=== PATIENT | female | born 1970 | race Caucasian/White ===

== ENCOUNTER 2016-12-26 08:50 | Emergency (ER) | payer OTHER ==
[2016-12-26 09:08] VITALS: BP 128/81
--- NOTE | 2016-12-26 09:12 | UC ---
Throat Pain/Nasal Anthony HPI - HPI Summary HPI Summary: Fabiano sinus and ear pressure for about three weeks. No fever. She has been trying OTC decongestants and flonase. Now she has redness and irritation of the left eye. No trauma or contact lens use. NO vision change. - History of Current Complaint Stated Complaint: COUGH,EYE COMPLAINT Time Seen by Provider: 12/26/16 08:53 Hx Obtained From: Patient Hx Last Menstrual Period: 06/21/16 ?: No Onset/Duration: Gradual Onset, Lasting Weeks Severity: Moderate Cough: Nonproductive Associated Signs & Symptoms: Positive: Negative, Sinus Discomfort. Negative: Fever, Vomiting, Rash Related History: Seasonal Allergies - Allergies/Home Medications Allergies/Adverse Reactions: Allergies Allergy/AdvReac Type Severity Reaction Status Date / Time No Known Allergies Allergy Verified 07/11/16 15:29 PMH/Surg Hx/FS Hx/Imm Hx Previously Healthy: No - seasonal allergies. - Surgical History Surgical History: Yes Surgery Procedure, Year, and Place: APPENDECTOMY, TONSILLECTOMY, Both HAND AND both SHOULDER SURGERY - Family History Known Family History: Positive: Other - positive [facility] for laceration - Social History Occupation: Employed Full-time Lives: With Family Alcohol Use: Occasionally Substance Use Type: None Smoking Status (MU): Former Smoker Type: Cigarettes Amount Used/How Often: 1/2 ppd Length of Time of Smoking/Using Tobacco: since age 18 When Did the Patient Quit Smoking/Using Tobacco: 2004 - Immunization History Most Recent Tetanus Shot: unknown Review of Systems ENT: Ear Ache, Nasal Discharge, Sinus Congestion, Sinus Pain/Tenderness Respiratory: Cough All Other Systems Reviewed And Are Negative: Yes Physical Exam Triage Information Reviewed: Yes Appearance: Well-Appearing, No Pain Distress, Well-Nourished Vital Signs Reviewed: Yes Eyes: Positive: Conjunctiva Inflamed - left isolated bulbar conjunctivitis. ENT: Positive: Nasal congestion, TM bulging, Sinus tenderness, Uvula midline. Negative: TM dull, TM red, Tonsillar swelling, Tonsillar exudate, Trismus Neck: Positive: Supple, Nontender, No Lymphadenopathy Respiratory: Positive: Chest non-tender, Lungs clear, Normal breath sounds, No respiratory distress, No accessory muscle use, Respiratory distress Cardiovascular: Positive: RRR, No Murmur, Pulses Normal, Brisk Capillary Refill Abdomen Description: Positive: Nontender, No Organomegaly, Soft, Distended, Guarding Musculoskeletal: Positive: ROM Intact, No Edema Neurological: Positive: Alert, Muscle Tone Normal, Fatigued Skin: Positive: rashes Throat Pain/Nasal Course/Dx - Differential Dx/Diagnosis Provider Diagnoses: sinusitis. serous otitis. left conjunctivitis. Discharge - Discharge Plan Condition: Good Disposition: HOME Prescriptions: Amoxicillin PO (*) [Amoxicillin 500 MG CAP*] 500 mg PO TID #30 cap Ciprofloxacin 0.3% OPTH.VIELKA* [Cipro 0.3% Opth*] 2 drop BOTH EYES Q4H #1 btl Patient Education Materials: Sinusitis (ED) Referrals: CHANTALE Montano [Primary Care Provider] -
== END 2016-12-26 09:20 | disposition home or self-care (01) ==
LOC: UCCORT 08:50
DX: J32.9 Chronic sinusitis, unspecified (principal); H65.90 Unspecified nonsuppurative otitis media, unspecified ear; H10.32 Unspecified acute conjunctivitis, left eye; Z87.891 Personal history of nicotine dependence
CPT/HCPCS: 99212; G0463